=== PATIENT | female | born 1985 | race Caucasian/White ===

== ENCOUNTER 2018-09-29 06:25 | Emergency (ER) | payer MEDICAID ==
--- NOTE | 2018-09-29 07:01 | EDM.PDOC ---
ED HPI GENERAL MEDICAL PROBLEM - General Chief Complaint: General Stated Complaint: toothache Time Seen by Provider: 09/29/18 06:45 Source of Information: Reports: Patient History Limitations: Reports: No Limitations - History of Present Illness INITIAL COMMENTS - FREE TEXT/NARRATIVE: 33 YO WF presents to ER complaining of dental pain which began 1 week ago. Pt reports pain became worse this am prompting ER visit. Pt reports pain to left lower jaw. Pt denies fever/chills, gum swelling. Pt currently chewing on ice as she states that helps with her pain. 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 - Related Data Allergies Allergy/AdvReac Type Severity Reaction Status Date / Time No Known Drug Allergies Allergy Other Verified 09/29/18 06:40 Home Meds: Home Meds Aspirin 650 mg PO Q3H PRN 09/29/18 [History] Cephalexin [Keflex] 500 mg PO Q6HR #40 capsule 09/29/18 [Rx] Ibuprofen 800 mg PO Q4H PRN 09/29/18 [History] Sertraline [Zoloft] 200 mg PO DAILY 09/29/18 [History] traMADol [Ultram] 50 mg PO Q6H PRN #10 tab 09/29/18 [Rx] ED ROS GENERAL - Review of Systems Review Of Systems: See Below Constitutional: Reports: No Symptoms HEENT: Reports: Dental Pain Respiratory: Reports: No Symptoms Cardiovascular: Reports: No Symptoms Endocrine: Reports: No Symptoms GI/Abdominal: Reports: No Symptoms : Reports: No Symptoms Musculoskeletal: Reports: No Symptoms Skin: Reports: No Symptoms Neurological: Reports: No Symptoms Psychiatric: Reports: No Symptoms Hematologic/Lymphatic: Reports: No Symptoms Immunologic: Reports: No Symptoms ED EXAM, GENERAL - Physical Exam Exam: See Below Exam Limited By: No Limitations General Appearance: Alert, WD/WN, No Apparent Distress Throat/Mouth: Normal Lips, Normal Gums, Normal Oropharynx, Normal Voice, No Airway Compromise (dental caries lower left jaw with partial denture upper. no erythema or gum swelling). No: Normal Teeth Head: Atraumatic, Normocephalic Neck: Normal Inspection, Supple, Non-Tender, Full Range of Motion Respiratory/Chest: No Respiratory Distress, Lungs Clear, Normal Breath Sounds, No Accessory Muscle Use, Chest Non-Tender Cardiovascular: Normal Peripheral Pulses, Regular Rate, Rhythm, No Edema, No Gallop, No JVD, No Murmur, No Rub GI/Abdominal: Normal Bowel Sounds, Soft, Non-Tender, No Organomegaly, No Distention, No Abnormal Bruit, No Mass Back Exam: Normal Inspection, Full Range of Motion, NT Extremities: Normal Inspection, Normal Range of Motion, Non-Tender, Normal Capillary Refill, No Pedal Edema Neurological: Alert, Oriented, CN II-XII Intact, Normal Cognition, Normal Gait, Normal Reflexes, No Motor/Sensory Deficits Psychiatric: Normal Affect, Normal Mood Skin Exam: Warm, Dry, Intact, Normal Color, No Rash Lymphatic: No Adenopathy Course - Vital Signs Last Recorded V/S: Last Vital Signs Temp 36.8 C 09/29/18 06:25 Pulse 64 09/29/18 06:25 Resp 16 09/29/18 06:25 BP 130/83 09/29/18 06:25 Pulse Ox 99 09/29/18 06:25 - Orders/Labs/Meds Labs: Laboratory Tests 09/29/18 09/29/18 Range/Units 06:40 06:40 Specimen Type . Urine Color Light yellow (YELLOW) Urine Appearance Clear (CLEAR) Urine pH >= 9.0 (5.0-9.0) Ur Specific [place] 1.015 (1.005-1.030) Urine Protein Negative (NEGATIVE) mg/dL Urine Glucose (UA) Negative (NEGATIVE) mg/dL Urine Ketones Negative (NEGATIVE) mg/dL Urine Occult Blood Negative (NEGATIVE) Urine Nitrite Negative (NEGATIVE) Urine Bilirubin Negative (NEGATIVE) Urine Urobilinogen 0.2 (0.2-1.0) E.U./dL Ur Leukocyte Esterase Negative (NEGATIVE) Urine HCG, Qual Negative (NEGATIVE) Departure - Departure Time of Disposition: 07:05 Disposition: Home, Self-Care 01 Condition: Good Clinical Impression: Toothache - Discharge Information Prescriptions: Cephalexin [Keflex] 500 mg PO Q6HR #40 capsule traMADol [Ultram] 50 mg PO Q6H PRN #10 tab PRN Reason: Pain Referrals: Jazmine Alex MD [Primary Care Provider] - Additional Instructions: 1. discharge home 2. keflex 500mg PO Q8 x 10 days 3. ultram 50mg PO Q4-6 PRN pain #10 4. motrin 600mg PO Q6 PRN pain x 5 days 5. follow up with PCP for further evaluation and treatment 6. return to ER for worsening symptoms - Assessment/Plan Assessment:: 1. toothache Plan: 1. discharge home 2. keflex 500mg PO Q8 x 10 days 3. ultram 50mg PO Q4-6 PRN pain #10 4. motrin 600mg PO Q6 PRN pain x 5 days 5. follow up with PCP for further evaluation and treatment 6. return to ER for worsening symptoms
[2018-09-29] MEDS ORDERED: Ketorolac 60 MG/2 ML SDV IM ONE (07:02)
[2018-09-29] MEDS ORDERED: traMADol 50 MG Tab PO ONE (07:02)
[2018-09-29] MEDS ORDERED: Cephalexin 250 MG Cap PO ONE ×2 (07:02→07:10)
[2018-09-29] MEDS ORDERED: Cephalexin 250 MG Cap ONE (07:21)
== END 2018-09-29 07:30 | disposition home or self-care (01) ==
LOC: KA.ED 06:25
DX: K02.9 Dental caries, unspecified (principal); Z79.82 Long term (current) use of aspirin; Z79.899 Other long term (current) drug therapy
CPT/HCPCS: 81003; 81025; 96372; 99283; A9270-GY; J1885

== ENCOUNTER 2021-01-01 07:54 | Emergency (ER) | payer MEDICAID ==
--- NOTE | 2021-01-01 08:17 | EDM.PDOC ---
ED HPI GENERAL MEDICAL PROBLEM - General Chief Complaint: Gastrointestinal Problem Stated Complaint: NAUSEA, VOMITING, DIARRHEA Time Seen by Provider: 01/01/21 08:17 Source of Information: Reports: Patient - History of Present Illness INITIAL COMMENTS - FREE TEXT/NARRATIVE: Florina, 35-year-old female, presents emergency department with generalized body aches flank pain gastrointestinal upset with watery stools. This started today,early am, but has a 10+ day history of Covid-like symptoms which she previously tested negative for. Questions validity of test as no reagent used at time swab was collected. She states that likely her son, kindergarten age was the first exposure/positive she then had the symptoms with taste and malaise developing 10+days with the sudden onset early this a.m. of gastrointestinal cramping loose watery stools with flank pain. She is achiness generalized body aches as well. Her mother just finished quarantine as both mother and father are positive. Her mother finishing quarantine 2 days ago. Father receiving antibodies and feeling better. She complains of extreme thirst and questions her history of prolonged QT syndrome and renal colic as contributing to this event. Duration: Day(s): Location: Reports: Abdomen headache Pain Score (Numeric/FACES): 4 - Related Data Allergies Allergy/AdvReac Type Severity Reaction Status Date / Time latex Allergy Rash Verified 01/01/21 08:34 Penicillins Allergy unsure Verified 01/01/21 08:34 Sulfa (Sulfonamide Allergy Hives Verified 01/01/21 08:34 Antibiotics) Home Meds: Home Meds Sertraline [Zoloft] 100 mg PO DAILY 09/29/18 [History] Elderberry Fruit and Flower [Black Elderberry 575 mg Cap] 1 each PO DAILY 01/01/21 [History] Eszopiclone [Lunesta] 2 mg PO BEDTIME PRN 01/01/21 [History] Ketorolac [Toradol] 10 mg PO Q8H PRN #15 tab 01/01/21 [Rx] Mv-Mn/C/Glutamin/Lysin/[id number] [Airborne Gummies] 1 each PO DAILY 01/01/21 [History] Ondansetron [Ondansetron Odt] 4 mg PO Q6H PRN 5 Days #20 tab.rapdis 01/01/21 [Rx] Past Medical History Cardiovascular History: Reports: Other (See Below) (Prolonged QT syndrome) Respiratory History: Reports: None Gastrointestinal History: Reports: Other (See Below) ( eating disorder) Genitourinary History: Reports: Pyelonephritis 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 ED EXAM, GENERAL - Physical Exam Exam: See Below Free Text/Narrative:: Alert, oriented, with general malaise appearance with no cyanosis nor pallor noted. HEENT is negative discharge or deformity she does appear ill. There is no involvement the auditory canals tympanic membranes pink somewhat dry appearing mucous membranes with no erythema. Nasal passages are patent. Neck soft supple no lymphadenopathy. Thorax is clear no wheezes nor crackles are noted. Cardiac is tachycardic with no appreciated murmur. Abdomen is soft bowel sounds are active generalized malaise feeling to the abdomen with no point tenderness no megaly appreciated. There is no edema to the lower extremities. #1 Interpretation EKG Date: 01/01/21 Time: 08:57 Rhythm: NSR Comparison: Change From Previous EKG (Rate change in written report, NO hard copy available) Course - Vital Signs Last Recorded V/S: Last Vital Signs Temp 99 F 01/01/21 08:00 Pulse 100 01/01/21 09:19 Resp 14 01/01/21 09:19 BP 105/70 01/01/21 09:19 Pulse Ox 98 01/01/21 09:19 - Orders/Labs/Meds Orders: Active Orders 24 hr Category Date Time Status EKG 12 Lead [EK] Stat Ther 01/01/21 08:33 Ordered Labs: Laboratory Tests 01/01/21 01/01/21 01/01/21 Range/Units 08:00 08:09 08:09 WBC 15.06 H (5.00-10.00) 10^3/uL RBC 4.64 (3.80-5.50) 10^6/uL Hgb 14.2 (12.0-16.0) g/dL Hct 42.7 (37.0-47.0) % MCV 92.0 (82.0-92.0) fL MCH 30.6 (27.0-31.0) pg MCHC 33.3 (32.0-36.0) g/dL RDW 12.6 (11.5-14.5) % Plt Count 282 (150-400) 10^3/uL MPV 11.6 H (7.4-10.4) fL Add Manual Diff Yes Neutrophils % (Manual) 94 H (50-70) % Band Neutrophils % 0 L (4-12) % Lymphocytes % (Manual) 3 L (20-40) % Atypical Lymphs % 0 Monocytes % (Manual) 3 (2-8) % Eosinophils % (Manual) 0 L (1-3) % Basophils % (Manual) 0 (0-1) % Platelet Estimate Adequate Sodium (136-145) mmol/L Potassium (3.5-5.1) mmol/L Chloride (98-107) mmol/L Carbon Dioxide (21.0-32.0) mmol/L Anion Gap (5-15) mmol/L BUN (7-18) mg/dL Creatinine (0.51-1.17) mg/dL Est Cr Clr Drug Dosing Estimated GFR (MDRD) mL/min Glucose (70-140) mg/dL Calcium (8.7-10.3) mg/dL Total Bilirubin (0.2-1.0) mg/dL AST (15-37) U/L ALT (14-63) U/L Alkaline Phosphatase (46-116) U/L Total Protein (6.4-8.2) g/dL Albumin (3.40-5.00) g/dL Specimen Type Urincc Urine Color Yellow (YELLOW) Urine Appearance Clear (CLEAR) Urine pH >= 9.0 (5.0-9.0) Ur Specific [place] 1.015 (1.005-1.030) Urine Protein 100 H (NEGATIVE) mg/dL Urine Glucose (UA) Negative (NEGATIVE) mg/dL Urine Ketones Negative (NEGATIVE) mg/dL Urine Occult Blood Negative (NEGATIVE) Urine Nitrite Negative (NEGATIVE) Urine Bilirubin Negative (NEGATIVE) Urine Urobilinogen 0.2 (0.2-1.0) E.U./dL Ur Leukocyte Esterase Negative (NEGATIVE) Urine RBC 0-5 (0-5) /HPF Urine WBC 0-5 (0-5) /HPF Ur Epithelial Cells Few /LPF Urine Bacteria Few (NONE TO FEW) /HPF Urine Mucus Moderate H (NEGATIVE) /LPF SARS CoV-2 RNA Rapid KAIA Positive H (NEGATIVE) 01/01/21 Range/Units 08:09 WBC (5.00-10.00) 10^3/uL RBC (3.80-5.50) 10^6/uL Hgb (12.0-16.0) g/dL Hct (37.0-47.0) % MCV (82.0-92.0) fL MCH (27.0-31.0) pg MCHC (32.0-36.0) g/dL RDW (11.5-14.5) % Plt Count (150-400) 10^3/uL MPV (7.4-10.4) fL Add Manual Diff Neutrophils % (Manual) (50-70) % Band Neutrophils % (4-12) % Lymphocytes % (Manual) (20-40) % Atypical Lymphs % Monocytes % (Manual) (2-8) % Eosinophils % (Manual) (1-3) % Basophils % (Manual) (0-1) % Platelet Estimate Sodium 142 (136-145) mmol/L Potassium 4.5 (3.5-5.1) mmol/L Chloride 104 (98-107) mmol/L Carbon Dioxide 28.0 (21.0-32.0) mmol/L Anion Gap 14.5 (5-15) mmol/L BUN 20 H (7-18) mg/dL Creatinine 0.89 (0.51-1.17) mg/dL Est Cr Clr Drug Dosing TNP Estimated GFR (MDRD) > 60 mL/min Glucose 104 (70-140) mg/dL Calcium 8.2 L (8.7-10.3) mg/dL Total Bilirubin 1.2 H (0.2-1.0) mg/dL AST 18 (15-37) U/L ALT 17 (14-63) U/L Alkaline Phosphatase 60 (46-116) U/L Total Protein 6.7 (6.4-8.2) g/dL Albumin 3.82 (3.40-5.00) g/dL Specimen Type Urine Color (YELLOW) Urine Appearance (CLEAR) Urine pH (5.0-9.0) Ur Specific [place] (1.005-1.030) Urine Protein (NEGATIVE) mg/dL Urine Glucose (UA) (NEGATIVE) mg/dL Urine Ketones (NEGATIVE) mg/dL Urine Occult Blood (NEGATIVE) Urine Nitrite (NEGATIVE) Urine Bilirubin (NEGATIVE) Urine Urobilinogen (0.2-1.0) E.U./dL Ur Leukocyte Esterase (NEGATIVE) Urine RBC (0-5) /HPF Urine WBC (0-5) /HPF Ur Epithelial Cells /LPF Urine Bacteria (NONE TO FEW) /HPF Urine Mucus (NEGATIVE) /LPF SARS CoV-2 RNA Rapid KAIA (NEGATIVE) Meds: Medications Discontinued Medications Generic Name Dose Route Start Last Admin Trade Name Freq PRN Reason Stop Dose Admin Sodium Chloride 1,000 mls @ 999 mls/hr 01/01/21 08:18 01/01/21 08:15 Normal Saline IV 01/01/21 09:18 999 mls/hr .BOLUS ONE Administration Ketorolac Tromethamine 30 mg 01/01/21 10:12 Ketorolac 30 Mg/Ml Sdv IVPUSH 01/01/21 10:13 ONETIME ONE - Re-Assessments/Exams Free Text/Narrative Re-Assessment/Exam: 01/01/21 10:23 No noted loose stools during the visit feels somewhat better with headache and mild nausea treated here with IV fluid and medication. Advised follow-up Departure - Departure Time of Disposition: 10:18 Disposition: Home, Self-Care 01 Condition: Good Clinical Impression: COVID-19 virus infection, Dehydration symptoms - Discharge Information *PRESCRIPTION DRUG MONITORING PROGRAM REVIEWED*: Not Applicable *COPY OF PRESCRIPTION DRUG MONITORING REPORT IN PATIENT JAMSHID: Not Applicable Prescriptions: Ondansetron [Ondansetron Odt] 4 mg PO Q6H PRN 5 Days #20 tab.rapdis PRN Reason: Nausea Ketorolac [Toradol] 10 mg PO Q8H PRN #15 tab PRN Reason: Headache Instructions: COVID-19: Quarantine vs. Isolation - [facility] [place] Diarrhea, Adult, [id number] Referrals: Jazmine Alex MD [Primary Care Provider] - Forms: ED Department Discharge Additional Instructions: Your COVID-19 is positive. Electrolyte testing shows your mildly dry and have received IV fluid. Slight elevation in your white count which can be a response to the stress as there is no evidence of infection based on your chest x-ray and urinalysis. Zofran and ketorolac has been ordered to your pharmacy for nausea and headache. Continue all your medications as directed. You need to be home and self quarantine limiting your exposures for 10 days. You are outside the window for monoclonal antibodies. In the event your symptoms worsen or you develop breathing difficulties consideration for reevaluation at your clinic or the emergency department should be considered as there is no set pattern for COVID-19 progression or improvement. Sepsis Event Note (ED) - Focused Exam Vital Signs: Vital Signs Temp Pulse Resp BP Pulse Ox 01/01/21 09:19 100 14 105/70 98 01/01/21 08:39 115 H 16 104/69 95 01/01/21 08:00 99 F 103 H 14 116/71 98 - Problem List & Annotations (1) COVID-19 virus infection SNOMED Code(s): 624220691 Code(s): U07.1 - COVID-19 Status: Acute Priority: High Current Visit: Yes (2) Dehydration symptoms SNOMED Code(s): 351524742 Code(s): R63.8 - OTHER SYMPTOMS AND SIGNS CONCERNING FOOD AND FLUID INTAKE Status: Acute Priority: High Current Visit: Yes (3) Headache SNOMED Code(s): 64883359 Code(s): R51.9 - HEADACHE, UNSPECIFIED Status: Acute Priority: High Current Visit: Yes Qualifiers: Headache type: unspecified Headache chronicity pattern: acute headache Intractability: not intractable Qualified Code(s): R51.9 - Headache, unspecified - Problem List Review Problem List Initiated/Reviewed/Updated: Yes - My Orders Last 24 Hours: My Active Orders 01/01/21 08:33 EKG 12 Lead [EK] Stat - Assessment/Plan Last 24 Hours: My Active Orders 01/01/21 08:33 EKG 12 Lead [EK] Stat Plan: Your COVID-19 is positive. Electrolyte testing shows your mildly dry and have received IV fluid. Slight elevation in your white count which can be a response to the stress as there is no evidence of infection based on your chest x-ray and urinalysis. You need to be home and self quarantine limiting your exposures for 10 days. Zofran and ketorolac has been ordered to your pharmacy for nausea and headache. Continue all your medications as directed. You are outside the window for monoclonal antibodies. In the event your symptoms worsen or you develop breathing difficulties consideration for reevaluation at your clinic or the emergency department should be considered as there is no set pattern for COVID-19 progression or improvement.
[2021-01-01] MEDS ORDERED: Sodium Chloride 0.9% 1,000 ML IV ONE (08:18)
[2021-01-01 09:06] LABS: ANION GAP 14.5 mmol/L (5-15); CHLORIDE,CL 104 mmol/L (98-107); SODIUM,NA 142 mmol/L (136-145)
--- NOTE | 2021-01-01 09:20 | CR ---
[id number] RAD/RAD Chest PA or AP 1V EXAM: FRONTAL CHEST INDICATION: GASTROINTESTINAL SYMPTOMS/HISTORY OF QT SYNDROME. COMPARISON: None. DISCUSSION: The heart and lungs are normal in appearance. IMPRESSION: 1. Negative exam. Rolando Ramirez MD 01/01/21 0919 Thank you for allowing us to participate in the care of your patient.
[2021-01-01] MEDS ORDERED: Ketorolac 30 MG/ML SDV IVPUSH ONE (10:12)
== END 2021-01-01 10:23 | disposition home or self-care (01) ==
LOC: KA.ED 07:54
DX: U07.1 COVID-19 (principal); E86.0 Dehydration; R11.0 Nausea; Z88.0 Allergy status to penicillin; Z88.2 Allergy status to sulfonamides; Z91.040 Latex allergy status
CPT/HCPCS: 36415; 71045; 80053; 81001; 85025; 93010; 96374; 99284; 99284-25; J1885; J7030; U0002

== ENCOUNTER 2021-10-24 07:51 | Observation (INO) | payer MEDICAID ==
[~2021-10-24 07:51] MED LIST: EPINEPHrine 0.3 MG/0.3 ML Pen Autoinjector IM ONE
[2021-10-24] MEDS ORDERED: Haloperidol Lactate 5 MG/ML SDV IV ONE (08:00)
[2021-10-24] MEDS: LORazepam 2 MG/ML SDV ONE ×2 (08:00→09:15)
[2021-10-24] MEDS ORDERED: LORazepam 2 MG/ML SDV IVPUSH ONE (08:00)
[2021-10-24] MEDS: Haloperidol Lactate 5 MG/ML SDV ONE ×2 (08:05→09:15)
[2021-10-24 08:40] LABS: ANION GAP 23.5 mmol/L (5-15); CHLORIDE,CL 98 mmol/L (98-107); ESTIMATED GFR 67 mL/min (>=60); SODIUM,NA 138 mmol/L (136-145)
[2021-10-24 08:43] LABS: BARBITURATE SCREEN,URINE NEGATIVE (NEGATIVE); BENZODIAZEPINES SCREEN,URINE NEGATIVE (NEGATIVE); TCA SCREEN,URINE NEGATIVE (NEGATIVE); THC SCREEN,URINE 50 NG/ML POSITIVE (NEGATIVE)
[2021-10-24] MEDS ORDERED: NS + KCl 20mEq/L 1,000 ML IV SCH (09:00)
[2021-10-24] MEDS ORDERED: Ondansetron 4 MG/2 ML SDV IV PRN (10:37)
[2021-10-25] MEDS ORDERED: Sertraline 50 MG Tab PO SCH (09:00)
== END 2021-10-24 14:10 | disposition home or self-care (01) ==
LOC: KA.ED 07:51 → KA.MS 09:37
PROVIDERS: ADMIT Nurse Practitioner; ATTEND Nurse Practitioner
DX: F29 Unspecified psychosis not due to a substance or known physiological condition (principal); R82.5 Elevated urine levels of drugs, medicaments and biological substances; F41.9 Anxiety disorder, unspecified; F32.A Depression, unspecified; Z98.890 Other specified postprocedural states; Z20.822 Contact with and (suspected) exposure to COVID-19; Z88.2 Allergy status to sulfonamides; Z88.0 Allergy status to penicillin; Z91.040 Latex allergy status; Z79.899 Other long term (current) drug therapy; Z86.16 Personal history of COVID-19
CPT/HCPCS: 36415; 80053; 80305-QW; 81001; 84484; 85025; 96365; 96366; 96372; 96375; 99236; 99285-25; A9270-GY; G0378; J1630; J2060; J3480; U0002